=== PATIENT | female | born 1990 ===

== ENCOUNTER 2019-03-27 16:15 | Inpatient (IN) | payer MEDICAID ==
[~2019-03-27] VITALS: Ht 170.2 cm; Wt 54.1 kg
[~2019-03-27 16:15] MED LIST: METF500T17 PO
--- NOTE | 2019-03-27 17:02 | NUR ---
To T1 from lobby
--- NOTE | 2019-03-27 17:04 | NUR ---
BREAK RN: THIS IS A 28 YEAR OLD FEMALE WHO C/O OF LEFT FOOT PAIN PT REPORTS IT IS SWOLLEN "IT IS TURING BLACK." HX OF DIABETES TOES BLACK AND DRY. PT REPORTS THEY HAVE LOOKED LIKE THIS SINCE JAN. KARISSA NOTED TO LEFT FOOT
[2019-03-27 17:06] LABS: ANION GAP 6 mmol/L (5-15); CALCIUM 8.5 mg/dL (8.5-10.1); CHLORIDE 104 mmol/L (98-107); CREATININE 0.67 mg/dL (0.55-1.02)
[2019-03-27] MEDS ORDERED: ASPI-515 PO (17:08)
[2019-03-27] MEDS ORDERED: LISI5TAB7 PO (17:08)
[2019-03-27] MEDS ORDERED: LEVO25TA4 PO (17:09)
[2019-03-27] MEDS ORDERED: ATOR-2 PO (17:09)
[2019-03-27 17:13] LABS: MD YES; MEAN CORPUSCULAR HEMOGLOBIN 28.5 pg (27.0-34.8); MEAN CORPUSCULAR HGB CONC 32.7 g/dL (32.4-35.8); MEAN CORPUSCULAR VOLUME 87.2 fL (80-100); MEAN PLATELET VOLUME 7.3 fL (7.4-10.4); PLATELET COUNT 612 x10^3/uL (130-400); RED BLOOD COUNT 4.34 x10^6/uL (3.82-5.3); RED CELL DISTRIBUTION WIDTH 22.6 % (9.6-15.2)
[2019-03-27] MEDS ORDERED: MORPHINE SULFATE 4 MG/ML, 1ML ONE ×2 (17:23→19:42)
[2019-03-27 17:28] LABS: BAND#(MANUAL) 0.11 x10^3/uL; BANDS%(MANUAL) 1 % (0-7); LYMPH#(MANUAL) 1.44 x10^3/uL (1-3.4); LYMPHS% (MANUAL) 13 % (22-44); METAMYELOCYTES# (MANUAL) 0.11 x10^3/uL (0-0); METAMYELOCYTES% (MANUAL) 1 % (0-1); MONOS#(MANUAL) 0.44 x10^3/uL (0.3-2.7); MONOS% (MANUAL) 4 % (2-9); SEG#(MANUAL) 8.99 x10^3/uL (1.8-6.8); SEGS% (MANUAL) 81 % (42-75)
[2019-03-27 17:30] LABS: <PLATELET ESTIMATE> INCREASED; <PLT MORPHOLOGY> NORMAL PLT MORPH; ANISOCYTOSIS 1+; POLYCHROMASIA 1+
[2019-03-27] MEDS ORDERED: AMPICILLIN/SULBACTAM 3 GM in SODIUM CHLORIDE 0.9% 100 ML IV ONE (17:30)
[2019-03-27] MEDS ORDERED: MORPHINE SULFATE 4 MG/ML, 1ML IVPush ONE (17:30)
--- NOTE | 2019-03-27 17:57 | NUR ---
ABX INFUSING. PAIN IS TOLERABLE. VSS. NO NEEDS AT THIS TIME
[2019-03-27 18:00] LABS: HCT (SEDRATE) 37.8 % (34.6-47.8)
[2019-03-27] MEDS ORDERED: MORPHINE SULFATE 4 MG/ML, 1ML IVPush PRN (20:00)
--- NOTE | 2019-03-27 20:00 | NUR ---
MEDICATED PER ORDERS, GIVEN WATER. NO NEEDS AT THIS TIME. WAITING TO TRANSFER TO FLOOR
--- NOTE | 2019-03-27 20:15 | NUR ---
REPORT TO [facility]
[2019-03-27] MEDS ORDERED: ACETAMINOPHEN 325 MG TABLET PO PRN (20:30)
[2019-03-27] MEDS ORDERED: ONDANSETRON 2MG/ML, 2ML IVPush PRN (20:30)
[2019-03-27 20:51] VITALS: BP 151/95
[2019-03-27] MEDS: AMPICILLIN/SULBACTAM 3 GM in SODIUM CHLORIDE 0.9% 100 ML IV SCH (23:46)
[2019-03-27] MEDS: ATORVASTATIN 80 MG TABLET PO SCH (23:47)
[2019-03-27] MEDS: ENOXAPARIN 40 MG/0.4 ML SQ SCH (23:47)
[2019-03-27] MEDS: morphine SULFATE 10 MG/ML, 1ML IVPush PRN (23:47)
[2019-03-27 23:54] LABS: FREE T4 (FREE THYROXINE) 1.44 ng/dL (0.76-1.46)
[2019-03-28 01:03] VITALS: BP 124/86
[2019-03-28] MEDS: morphine SULFATE 10 MG/ML, 1ML IVPush PRN ×5 (05:47→23:46)
[2019-03-28] MEDS: LEVOTHYROXINE 25 MCG TABLET PO SCH (05:47)
[2019-03-28] MEDS: AMPICILLIN/SULBACTAM 3 GM in SODIUM CHLORIDE 0.9% 100 ML IV SCH ×4 (05:48→23:43)
[2019-03-28 06:01] LABS: ANION GAP 6 mmol/L (5-15); CALCIUM 8.1 mg/dL (8.5-10.1); CHLORIDE 107 mmol/L (98-107)
[2019-03-28 06:07] LABS: CHOL/HDL RATIO 2.6; CHOLESTEROL, TOTAL 93 mg/dL (140-239); CREATININE 0.59 mg/dL (0.55-1.02); HDL CHOL % 39 % (28-40); HDL CHOLESTEROL (DIRECT) 36 mg/dL (40-60); LDL CHOLESTEROL,CALCULATED 36 mg/dL (54-169); TRIGLYCERIDES 107 mg/dL (50-200); VLDL CHOLESTEROL 21 mg/dL (0-25)
[2019-03-28 06:17] LABS: MEAN CORPUSCULAR HEMOGLOBIN 28.6 pg (27.0-34.8); MEAN CORPUSCULAR HGB CONC 32.3 g/dL (32.4-35.8); MEAN CORPUSCULAR VOLUME 88.6 fL (80-100); MEAN PLATELET VOLUME 7.4 fL (7.4-10.4); PLATELET COUNT 563 x10^3/uL (130-400); RED BLOOD COUNT 3.94 x10^6/uL (3.82-5.3); RED CELL DISTRIBUTION WIDTH 22.5 % (9.6-15.2)
[2019-03-28 06:19] LABS: BASOPHILS # (AUTO) 0.05 x10^3/uL (0-0.1); BASOPHILS % (AUTO) 1 % (0-1); EOSINOPHILS % (AUTO) 3 % (1-7); LYMPHOCYTES # (AUTO) 1.27 x10^3/uL (1-3.4); LYMPHOCYTES % (AUTO) 18 % (22-44); MD SCAN; MONOCYTES # (AUTO) 0.63 x10^3/uL (0.2-0.8); MONOCYTES % (AUTO) 9 % (2-9); NEUTROPHILS # (AUTO) 5.12 x10^3/uL (1.8-6.8); NEUTROPHILS % (AUTO) 70 % (42-75)
[2019-03-28 07:04] VITALS: BP 124/82
[2019-03-28] MEDS: ASPIRIN 81 MG TABLET EC PO SCH (08:56)
[2019-03-28] MEDS: SENNA/DOCUSATE TABLET PO SCH (08:56)
[2019-03-28] MEDS: LISINOPRIL 5 MG TABLET PO SCH (08:56)
[2019-03-28 12:49] VITALS: BP 134/89
[2019-03-28 19:03] LABS: INTERNATIONAL NORMALIZED RATIO 1.12 (0.93-1.1); PROTHROMBIN TIME 11.9 Seconds (9.6-11.5)
[2019-03-28 19:51] VITALS: BP 126/86
[2019-03-28] MEDS: ENOXAPARIN 40 MG/0.4 ML SQ SCH (20:22)
[2019-03-28] MEDS: ATORVASTATIN 80 MG TABLET PO SCH (20:22)
[2019-03-29 01:01] VITALS: BP 108/68
[2019-03-29 05:21] LABS: MEAN CORPUSCULAR HEMOGLOBIN 28.4 pg (27.0-34.8); MEAN CORPUSCULAR HGB CONC 32.4 g/dL (32.4-35.8); MEAN CORPUSCULAR VOLUME 87.6 fL (80-100); MEAN PLATELET VOLUME 7.3 fL (7.4-10.4); PLATELET COUNT 479 x10^3/uL (130-400); RED BLOOD COUNT 3.53 x10^6/uL (3.82-5.3); RED CELL DISTRIBUTION WIDTH 22.3 % (9.6-15.2)
[2019-03-29 05:24] LABS: ANION GAP 5 mmol/L (5-15); CHLORIDE 104 mmol/L (98-107)
[2019-03-29 05:27] LABS: CREATININE 0.42 mg/dL (0.55-1.02)
[2019-03-29 05:44] LABS: BASOPHILS # (AUTO) 0.06 x10^3/uL (0-0.1); BASOPHILS % (AUTO) 1 % (0-1); EOSINOPHILS # (AUTO) 0.26 x10^3/uL (0-0.4); EOSINOPHILS % (AUTO) 4 % (1-7); LYMPHOCYTES # (AUTO) 1.64 x10^3/uL (1-3.4); LYMPHOCYTES % (AUTO) 23 % (22-44); MD SCAN; MONOCYTES # (AUTO) 0.53 x10^3/uL (0.2-0.8); MONOCYTES % (AUTO) 8 % (2-9); NEUTROPHILS # (AUTO) 4.57 x10^3/uL (1.8-6.8); NEUTROPHILS % (AUTO) 65 % (42-75)
[2019-03-29] MEDS: LEVOTHYROXINE 25 MCG TABLET PO SCH (06:16)
[2019-03-29] MEDS: AMPICILLIN/SULBACTAM 3 GM in SODIUM CHLORIDE 0.9% 100 ML IV SCH ×3 (06:16→17:25)
[2019-03-29] MEDS: morphine SULFATE 10 MG/ML, 1ML IVPush PRN ×4 (06:19→21:24)
[2019-03-29 07:37] VITALS: BP 113/77
[2019-03-29] MEDS: SENNA/DOCUSATE TABLET PO SCH (09:49)
[2019-03-29] MEDS: ASPIRIN 81 MG TABLET EC PO SCH (09:49)
[2019-03-29] MEDS: LISINOPRIL 5 MG TABLET PO SCH (09:49)
[2019-03-29 14:11] LABS: HCG UR SG 1.011 (1.003-1.030)
[2019-03-29] MEDS ORDERED: FENTANYL PF 250 MCG/5ML ONE (14:24)
[2019-03-29] MEDS ORDERED: MIDAZOLAM 1 MG/ML, 2ML ONE (14:24)
[2019-03-29] MEDS ORDERED: ONDANSETRON 2MG/ML, 2ML ONE (14:25)
[2019-03-29] MEDS ORDERED: DEXAMETHASONE 4 MG/ML, 1ML ONE ×2 (14:25)
[2019-03-29] MEDS ORDERED: CEFAZOLIN 1,000 MG ONE ×2 (14:26)
[2019-03-29] MEDS ORDERED: SODIUM CHLORIDE 0.9% PF 10ML ONE (14:26)
[2019-03-29] MEDS ORDERED: PROPOFOL 10 MG/ML, 20ML ONE (15:14)
[2019-03-29] MEDS ORDERED: PROMETHAZINE 25 MG/ML, 1ML IV PRN (16:00)
[2019-03-29] MEDS ORDERED: ACETAMINOPHEN 325 MG TABLET PO PRN (16:00)
[2019-03-29] MEDS ORDERED: MEPERIDINE/PF 25MG/ML,1ML IVPush PRN (16:00)
[2019-03-29] MEDS ORDERED: HALOPERIDOL 5 MG/ML IV PRN (16:00)
[2019-03-29] MEDS ORDERED: HYDROmorphone 2 MG/ML, 1ML IVPush PRN (16:00)
[2019-03-29] MEDS ORDERED: MORPHINE SULFATE 4 MG/ML, 1ML IVPush PRN (16:00)
[2019-03-29] MEDS ORDERED: LABETALOL 5MG/ML, 20ML IV PRN (16:00)
[2019-03-29] MEDS ORDERED: OXYcodone 5 MG/5 ML ORAL.SOL UDC PO PRN (16:00)
[2019-03-29] MEDS ORDERED: hydrALAzine 20 MG/ML, 1ML IV PRN (16:00)
[2019-03-29] MEDS ORDERED: ACETAMINOPHEN 650 MG/20.3 ML UDC ONE (16:01)
[2019-03-29] MEDS ORDERED: FENTANYL PF 100 MCG/2ML ONE (16:01)
[2019-03-29] MEDS ORDERED: OXYcodone 5 MG/5 ML ORAL.SOL UDC ONE (16:01)
[2019-03-29] MEDS: FENTANYL PF 100 MCG/2ML IV PRN ×2 (16:07→16:25)
[2019-03-29 18:11] VITALS: BP 125/82
[2019-03-29 19:01] VITALS: BP 139/93
[2019-03-29] MEDS: ATORVASTATIN 80 MG TABLET PO SCH (21:15)
[2019-03-29] MEDS: ENOXAPARIN 40 MG/0.4 ML SQ SCH (21:15)
[2019-03-30] MEDS: AMPICILLIN/SULBACTAM 3 GM in SODIUM CHLORIDE 0.9% 100 ML IV SCH ×4 (00:14→17:58)
[2019-03-30] MEDS: morphine SULFATE 10 MG/ML, 1ML IVPush PRN ×5 (00:15→17:57)
[2019-03-30 01:00] VITALS: BP 120/76
[2019-03-30] MEDS: LEVOTHYROXINE 25 MCG TABLET PO SCH (06:28)
[2019-03-30 09:02] VITALS: BP 130/86
[2019-03-30] MEDS: ASPIRIN 81 MG TABLET EC PO SCH (10:40)
[2019-03-30] MEDS: LISINOPRIL 5 MG TABLET PO SCH (10:41)
[2019-03-30] MEDS: SENNA/DOCUSATE TABLET PO SCH (10:41)
[2019-03-30 14:07] VITALS: BP 117/79
[2019-03-30 19:38] VITALS: BP 120/86
[2019-03-30] MEDS: ATORVASTATIN 80 MG TABLET PO SCH (20:32)
[2019-03-30] MEDS: ENOXAPARIN 40 MG/0.4 ML SQ SCH (20:32)
[2019-03-31] MEDS: AMPICILLIN/SULBACTAM 3 GM in SODIUM CHLORIDE 0.9% 100 ML IV SCH ×4 (00:12→18:17)
[2019-03-31] MEDS: morphine SULFATE 10 MG/ML, 1ML IVPush PRN ×4 (00:18→18:17)
[2019-03-31 01:19] VITALS: BP 112/72
[2019-03-31 05:19] LABS: BASOPHILS # (AUTO) 0.05 x10^3/uL (0-0.1); BASOPHILS % (AUTO) 1 % (0-1); EOSINOPHILS # (AUTO) 0.09 x10^3/uL (0-0.4); EOSINOPHILS % (AUTO) 1 % (1-7); LYMPHOCYTES # (AUTO) 1.85 x10^3/uL (1-3.4); LYMPHOCYTES % (AUTO) 19 % (22-44); MD NO; MEAN CORPUSCULAR HEMOGLOBIN 28.4 pg (27.0-34.8); MEAN CORPUSCULAR HGB CONC 32.6 g/dL (32.4-35.8); MEAN CORPUSCULAR VOLUME 87.1 fL (80-100); MEAN PLATELET VOLUME 7.3 fL (7.4-10.4); MONOCYTES # (AUTO) 0.68 x10^3/uL (0.2-0.8); MONOCYTES % (AUTO) 7 % (2-9); NEUTROPHILS # (AUTO) 7.09 x10^3/uL (1.8-6.8); NEUTROPHILS % (AUTO) 73 % (42-75); PLATELET COUNT 435 x10^3/uL (130-400); RED BLOOD COUNT 3.54 x10^6/uL (3.82-5.3); RED CELL DISTRIBUTION WIDTH 21.9 % (9.6-15.2)
[2019-03-31 05:30] LABS: ANION GAP 5 mmol/L (5-15); CALCIUM 7.9 mg/dL (8.5-10.1); CHLORIDE 104 mmol/L (98-107); CREATININE 0.48 mg/dL (0.55-1.02)
[2019-03-31] MEDS: LEVOTHYROXINE 25 MCG TABLET PO SCH (06:18)
[2019-03-31 07:30] VITALS: BP 117/78
[2019-03-31] MEDS ORDERED: MAGNESIUM SULFATE PMX 4GM/100M 100 ML IV ONE (07:30)
[2019-03-31] MEDS: MAGNESIUM CHLORIDE 64 MG TABLET.DR PO SCH ×2 (09:13→20:06)
[2019-03-31] MEDS: SENNA/DOCUSATE TABLET PO SCH (09:13)
[2019-03-31] MEDS: ASPIRIN 81 MG TABLET EC PO SCH (09:13)
[2019-03-31] MEDS: LISINOPRIL 5 MG TABLET PO SCH (09:13)
[2019-03-31 13:03] VITALS: BP 108/69
[2019-03-31] MEDS: ENOXAPARIN 40 MG/0.4 ML SQ SCH (20:06)
[2019-03-31] MEDS: ATORVASTATIN 80 MG TABLET PO SCH (20:06)
[2019-03-31 20:51] VITALS: BP 124/84
[2019-04-01] MEDS: AMPICILLIN/SULBACTAM 3 GM in SODIUM CHLORIDE 0.9% 100 ML IV SCH ×4 (00:10→18:15)
[2019-04-01] MEDS: morphine SULFATE 10 MG/ML, 1ML IVPush PRN (00:22)
[2019-04-01 02:26] VITALS: BP 127/86
[2019-04-01] MEDS: LEVOTHYROXINE 25 MCG TABLET PO SCH (05:44)
[2019-04-01 06:01] LABS: BASOPHILS % (AUTO) 0 % (0-1); EOSINOPHILS # (AUTO) 0.32 x10^3/uL (0-0.4); EOSINOPHILS % (AUTO) 3 % (1-7); LYMPHOCYTES # (AUTO) 1.28 x10^3/uL (1-3.4); LYMPHOCYTES % (AUTO) 13 % (22-44); MD NO; MEAN CORPUSCULAR HEMOGLOBIN 28.2 pg (27.0-34.8); MEAN CORPUSCULAR HGB CONC 32.2 g/dL (32.4-35.8); MEAN CORPUSCULAR VOLUME 87.7 fL (80-100); MEAN PLATELET VOLUME 7.6 fL (7.4-10.4); MONOCYTES # (AUTO) 0.45 x10^3/uL (0.2-0.8); MONOCYTES % (AUTO) 4 % (2-9); NEUTROPHILS # (AUTO) 8.22 x10^3/uL (1.8-6.8); NEUTROPHILS % (AUTO) 80 % (42-75); PLATELET COUNT 458 x10^3/uL (130-400); RED BLOOD COUNT 3.57 x10^6/uL (3.82-5.3); RED CELL DISTRIBUTION WIDTH 21.2 % (9.6-15.2)
[2019-04-01 06:09] LABS: ANION GAP 7 mmol/L (5-15); CHLORIDE 106 mmol/L (98-107); CREATININE 0.45 mg/dL (0.55-1.02)
[2019-04-01 07:24] VITALS: BP 127/83
[2019-04-01 08:23] LABS: HCT (SEDRATE) 30.8 % (34.6-47.8)
[2019-04-01] MEDS: MAGNESIUM CHLORIDE 64 MG TABLET.DR PO SCH ×2 (09:00→21:27)
[2019-04-01] MEDS: LISINOPRIL 5 MG TABLET PO SCH (09:00)
[2019-04-01] MEDS: ASPIRIN 81 MG TABLET EC PO SCH (09:00)
[2019-04-01] MEDS: SENNA/DOCUSATE TABLET PO SCH (09:01)
[2019-04-01] MEDS: HYDROcodone/APAP 5/325 TABLET PO PRN ×2 (10:54→19:30)
[2019-04-01] MEDS ORDERED: MORPHINE SULFATE 4 MG/ML, 1ML ONE (14:33)
[2019-04-01] MEDS ORDERED: GADOTERATE 7.5 MMOL/15 ML SYR ONE (14:57)
[2019-04-01] MEDS ORDERED: MORPHINE SULFATE 4 MG/ML, 1ML IVPush ONE (15:00)
[2019-04-01 19:26] VITALS: BP 119/80
[2019-04-01] MEDS: ATORVASTATIN 80 MG TABLET PO SCH (21:27)
[2019-04-01] MEDS: ENOXAPARIN 40 MG/0.4 ML SQ SCH (21:27)
[2019-04-02] MEDS: AMPICILLIN/SULBACTAM 3 GM in SODIUM CHLORIDE 0.9% 100 ML IV SCH ×4 (00:22→18:07)
[2019-04-02 02:00] VITALS: BP 127/84
[2019-04-02] MEDS: HYDROcodone/APAP 5/325 TABLET PO PRN ×4 (03:24→22:20)
[2019-04-02] MEDS: LEVOTHYROXINE 88 MCG TABLET PO SCH (05:45)
[2019-04-02] MEDS: LISINOPRIL 5 MG TABLET PO SCH (08:34)
[2019-04-02] MEDS: SENNA/DOCUSATE TABLET PO SCH (08:34)
[2019-04-02] MEDS: MAGNESIUM CHLORIDE 64 MG TABLET.DR PO SCH ×2 (08:34→22:28)
[2019-04-02] MEDS: ASPIRIN 81 MG TABLET EC PO SCH (08:34)
[2019-04-02 08:54] VITALS: BP 121/85
[2019-04-02 15:07] VITALS: BP 118/80
[2019-04-02 19:24] VITALS: BP 121/82
[2019-04-02] MEDS: ENOXAPARIN 40 MG/0.4 ML SQ SCH (22:20)
[2019-04-02] MEDS: ATORVASTATIN 80 MG TABLET PO SCH (22:20)
[2019-04-03] MEDS: AMPICILLIN/SULBACTAM 3 GM in SODIUM CHLORIDE 0.9% 100 ML IV SCH ×4 (00:24→17:50)
[2019-04-03 01:25] VITALS: BP 129/81
[2019-04-03] MEDS: HYDROcodone/APAP 5/325 TABLET PO PRN ×3 (04:45→19:07)
[2019-04-03] MEDS: LEVOTHYROXINE 88 MCG TABLET PO SCH (05:46)
[2019-04-03 05:59] LABS: BASOPHILS # (AUTO) 0.04 x10^3/uL (0-0.1); BASOPHILS % (AUTO) 1 % (0-1); EOSINOPHILS # (AUTO) 0.27 x10^3/uL (0-0.4); EOSINOPHILS % (AUTO) 4 % (1-7); LYMPHOCYTES % (AUTO) 18 % (22-44); MD NO; MEAN CORPUSCULAR HEMOGLOBIN 28.6 pg (27.0-34.8); MEAN CORPUSCULAR HGB CONC 32.4 g/dL (32.4-35.8); MEAN CORPUSCULAR VOLUME 88.3 fL (80-100); MEAN PLATELET VOLUME 7.2 fL (7.4-10.4); MONOCYTES # (AUTO) 0.64 x10^3/uL (0.2-0.8); MONOCYTES % (AUTO) 8 % (2-9); NEUTROPHILS # (AUTO) 5.28 x10^3/uL (1.8-6.8); NEUTROPHILS % (AUTO) 69 % (42-75); PLATELET COUNT 467 x10^3/uL (130-400); RED BLOOD COUNT 3.49 x10^6/uL (3.82-5.3); RED CELL DISTRIBUTION WIDTH 21.7 % (9.6-15.2)
[2019-04-03 06:02] LABS: ANION GAP 7 mmol/L (5-15); CALCIUM 8.2 mg/dL (8.5-10.1); CHLORIDE 108 mmol/L (98-107)
[2019-04-03 07:24] VITALS: BP 116/82
[2019-04-03] MEDS: ASPIRIN 81 MG TABLET EC PO SCH (08:37)
[2019-04-03] MEDS: MAGNESIUM CHLORIDE 64 MG TABLET.DR PO SCH ×2 (08:37→20:21)
[2019-04-03] MEDS: SENNA/DOCUSATE TABLET PO SCH (08:38)
[2019-04-03] MEDS: LISINOPRIL 5 MG TABLET PO SCH (08:38)
[2019-04-03 12:22] VITALS: BP 140/92
[2019-04-03 19:44] VITALS: BP 109/77
[2019-04-03] MEDS: ATORVASTATIN 80 MG TABLET PO SCH (20:22)
[2019-04-03] MEDS: ENOXAPARIN 40 MG/0.4 ML SQ SCH (20:22)
[2019-04-04] MEDS: AMPICILLIN/SULBACTAM 3 GM in SODIUM CHLORIDE 0.9% 100 ML IV SCH ×4 (00:05→18:12)
[2019-04-04] MEDS: HYDROcodone/APAP 5/325 TABLET PO PRN ×4 (00:05→21:21)
[2019-04-04 00:50] VITALS: BP 121/80
[2019-04-04 05:41] LABS: BASOPHILS # (AUTO) 0.08 x10^3/uL (0-0.1); BASOPHILS % (AUTO) 1 % (0-1); EOSINOPHILS # (AUTO) 0.25 x10^3/uL (0-0.4); EOSINOPHILS % (AUTO) 4 % (1-7); LYMPHOCYTES # (AUTO) 1.32 x10^3/uL (1-3.4); LYMPHOCYTES % (AUTO) 20 % (22-44); MD NO; MEAN CORPUSCULAR HEMOGLOBIN 28.4 pg (27.0-34.8); MEAN CORPUSCULAR HGB CONC 32.5 g/dL (32.4-35.8); MEAN CORPUSCULAR VOLUME 87.6 fL (80-100); MEAN PLATELET VOLUME 7.2 fL (7.4-10.4); MONOCYTES # (AUTO) 0.58 x10^3/uL (0.2-0.8); MONOCYTES % (AUTO) 9 % (2-9); NEUTROPHILS # (AUTO) 4.27 x10^3/uL (1.8-6.8); NEUTROPHILS % (AUTO) 66 % (42-75); PLATELET COUNT 479 x10^3/uL (130-400); RED CELL DISTRIBUTION WIDTH 21.5 % (9.6-15.2)
[2019-04-04 05:48] LABS: ALBUMIN 1.6 g/dL (3.4-5.0); ANION GAP 7 mmol/L (5-15); CALCIUM 8.2 mg/dL (8.5-10.1); CHLORIDE 109 mmol/L (98-107); CREATININE 0.37 mg/dL (0.55-1.02)
[2019-04-04] MEDS: LEVOTHYROXINE 88 MCG TABLET PO SCH (05:59)
[2019-04-04] MEDS: ASPIRIN 81 MG TABLET EC PO SCH (07:47)
[2019-04-04] MEDS: MULTIVITAMINS/MINERALS TABLET PO SCH (07:47)
[2019-04-04] MEDS: MAGNESIUM CHLORIDE 64 MG TABLET.DR PO SCH ×2 (07:47→21:21)
[2019-04-04] MEDS: LISINOPRIL 5 MG TABLET PO SCH (07:47)
[2019-04-04] MEDS: SENNA/DOCUSATE TABLET PO SCH (07:48)
[2019-04-04 07:50] VITALS: BP 114/75
[2019-04-04 14:43] VITALS: BP 101/61
[2019-04-04 18:50] VITALS: BP 135/95
[2019-04-04] MEDS: ENOXAPARIN 40 MG/0.4 ML SQ SCH (21:21)
[2019-04-04] MEDS: ATORVASTATIN 80 MG TABLET PO SCH (21:21)
[2019-04-05] MEDS: AMPICILLIN/SULBACTAM 3 GM in SODIUM CHLORIDE 0.9% 100 ML IV SCH ×5 (00:08→23:49)
[2019-04-05 00:32] VITALS: BP 138/91
[2019-04-05] MEDS: HYDROcodone/APAP 5/325 TABLET PO PRN ×3 (05:45→18:28)
[2019-04-05] MEDS: LEVOTHYROXINE 88 MCG TABLET PO SCH (05:45)
[2019-04-05 07:37] VITALS: BP 120/79
[2019-04-05] MEDS ORDERED: MAGNESIUM SULFATE PMX 2GM/50ML 50 ML IV ONE (09:00)
[2019-04-05] MEDS: ASPIRIN 81 MG TABLET EC PO SCH (09:35)
[2019-04-05] MEDS: SENNA/DOCUSATE TABLET PO SCH (09:35)
[2019-04-05] MEDS: MAGNESIUM CHLORIDE 64 MG TABLET.DR PO SCH ×2 (09:35→20:35)
[2019-04-05] MEDS: LISINOPRIL 5 MG TABLET PO SCH (09:35)
[2019-04-05] MEDS: MULTIVITAMINS/MINERALS TABLET PO SCH (09:35)
[2019-04-05 12:52] VITALS: BP 128/81
[2019-04-05] MEDS: ATORVASTATIN 80 MG TABLET PO SCH (20:35)
[2019-04-05] MEDS: ENOXAPARIN 40 MG/0.4 ML SQ SCH (20:35)
[2019-04-05 20:41] VITALS: BP 127/86
[2019-04-06 01:21] VITALS: BP 117/74
[2019-04-06] MEDS: LEVOTHYROXINE 88 MCG TABLET PO SCH (06:15)
[2019-04-06] MEDS: HYDROcodone/APAP 5/325 TABLET PO PRN ×3 (06:15→22:05)
[2019-04-06] MEDS: AMPICILLIN/SULBACTAM 3 GM in SODIUM CHLORIDE 0.9% 100 ML IV SCH ×3 (06:15→18:00)
[2019-04-06 08:15] VITALS: BP 118/73
[2019-04-06] MEDS: SENNA/DOCUSATE TABLET PO SCH (08:20)
[2019-04-06] MEDS: LISINOPRIL 5 MG TABLET PO SCH (08:20)
[2019-04-06] MEDS: MAGNESIUM CHLORIDE 64 MG TABLET.DR PO SCH ×2 (08:20→22:04)
[2019-04-06] MEDS: MULTIVITAMINS/MINERALS TABLET PO SCH (08:20)
[2019-04-06] MEDS: ASPIRIN 81 MG TABLET EC PO SCH (08:20)
[2019-04-06 13:08] VITALS: BP 127/88
[2019-04-06 19:20] VITALS: BP 127/90
[2019-04-06] MEDS: ATORVASTATIN 80 MG TABLET PO SCH (22:04)
[2019-04-06] MEDS: ENOXAPARIN 40 MG/0.4 ML SQ SCH (22:05)
[2019-04-07 00:33] VITALS: BP 131/84
[2019-04-07] MEDS: AMPICILLIN/SULBACTAM 3 GM in SODIUM CHLORIDE 0.9% 100 ML IV SCH ×5 (05:28→23:56)
[2019-04-07] MEDS: LEVOTHYROXINE 88 MCG TABLET PO SCH (05:28)
[2019-04-07 07:20] VITALS: BP 121/77
[2019-04-07] MEDS: SENNA/DOCUSATE TABLET PO SCH (07:53)
[2019-04-07] MEDS: MULTIVITAMINS/MINERALS TABLET PO SCH (07:53)
[2019-04-07] MEDS: ASPIRIN 81 MG TABLET EC PO SCH (07:53)
[2019-04-07] MEDS: MAGNESIUM CHLORIDE 64 MG TABLET.DR PO SCH ×2 (07:53→21:04)
[2019-04-07] MEDS: LISINOPRIL 5 MG TABLET PO SCH (07:54)
[2019-04-07] MEDS: HYDROcodone/APAP 5/325 TABLET PO PRN ×2 (11:37→18:22)
[2019-04-07 12:21] LABS: HCT (SEDRATE) 31.7 % (34.6-47.8)
[2019-04-07 13:09] VITALS: BP 126/81
[2019-04-07 19:00] VITALS: BP 117/74
[2019-04-07] MEDS: LACTOBACILLUS CHEW TABLET PO SCH (21:03)
[2019-04-07] MEDS: ENOXAPARIN 40 MG/0.4 ML SQ SCH (21:03)
[2019-04-07] MEDS: ATORVASTATIN 80 MG TABLET PO SCH (21:04)
[2019-04-08 00:35] VITALS: BP 125/82
[2019-04-08 05:26] LABS: BASOPHILS # (AUTO) 0.06 x10^3/uL (0-0.1); BASOPHILS % (AUTO) 1 % (0-1); EOSINOPHILS # (AUTO) 0.31 x10^3/uL (0-0.4); EOSINOPHILS % (AUTO) 4 % (1-7); LYMPHOCYTES # (AUTO) 1.52 x10^3/uL (1-3.4); LYMPHOCYTES % (AUTO) 21 % (22-44); MD NO; MEAN CORPUSCULAR HEMOGLOBIN 28.4 pg (27.0-34.8); MEAN CORPUSCULAR HGB CONC 32.1 g/dL (32.4-35.8); MEAN CORPUSCULAR VOLUME 88.4 fL (80-100); MEAN PLATELET VOLUME 7.3 fL (7.4-10.4); MONOCYTES # (AUTO) 0.57 x10^3/uL (0.2-0.8); MONOCYTES % (AUTO) 8 % (2-9); NEUTROPHILS # (AUTO) 4.89 x10^3/uL (1.8-6.8); NEUTROPHILS % (AUTO) 67 % (42-75); PLATELET COUNT 638 x10^3/uL (130-400); RED BLOOD COUNT 3.43 x10^6/uL (3.82-5.3)
[2019-04-08] MEDS: AMPICILLIN/SULBACTAM 3 GM in SODIUM CHLORIDE 0.9% 100 ML IV SCH (05:28)
[2019-04-08 05:31] LABS: CHLORIDE 110 mmol/L (98-107)
[2019-04-08] MEDS: LEVOTHYROXINE 88 MCG TABLET PO SCH (05:33)
[2019-04-08] MEDS: HYDROcodone/APAP 5/325 TABLET PO PRN ×3 (05:33→21:07)
[2019-04-08 05:46] LABS: ANION GAP 6 mmol/L (5-15); CALCIUM 8.5 mg/dL (8.5-10.1); CREATININE 0.38 mg/dL (0.55-1.02)
[2019-04-08 08:00] VITALS: BP 124/84
[2019-04-08] MEDS: ASPIRIN 81 MG TABLET EC PO SCH (08:41)
[2019-04-08] MEDS: LISINOPRIL 5 MG TABLET PO SCH (08:41)
[2019-04-08] MEDS: MULTIVITAMINS/MINERALS TABLET PO SCH (08:41)
[2019-04-08] MEDS: LACTOBACILLUS CHEW TABLET PO SCH ×3 (08:42→21:07)
[2019-04-08] MEDS: SENNA/DOCUSATE TABLET PO SCH (08:42)
[2019-04-08] MEDS: HYDROXYCHLOROQUINE 200 MG TABLET PO SCH ×2 (13:03→21:07)
[2019-04-08 14:00] VITALS: BP 121/75
[2019-04-08 16:02] LABS: AMPHETAMINE SCREEN, URINE Negative (Negative); BARBITURATE SCREEN, URINE Negative (Negative); BENZODIAZEPINE SCREEN, URINE Negative (Negative); CANNABINOID SCREEN, URINE Negative (Negative); COCAINE SCREEN, URINE Negative (Negative); METHADONE SCREEN, URINE Negative (Negative); OPIATE SCREEN, URINE Positive (Negative); PROTEIN/CREATININE RATIO,URINE 7716 (0-200); TOTAL PROTEIN,URINE RANDOM 152 mg/dL (0-12)
[2019-04-08] MEDS: AMOXICILLIN/CLAV 875-125MG TABLET PO SCH ×2 (16:17→21:07)
[2019-04-08 18:22] LABS: MICROSCOPIC AUTO
[2019-04-08 18:24] LABS: CULTURE INDICATED? NO
[2019-04-08 20:49] VITALS: BP 123/81
[2019-04-08] MEDS: ATORVASTATIN 80 MG TABLET PO SCH (21:06)
[2019-04-08] MEDS: ENOXAPARIN 40 MG/0.4 ML SQ SCH (21:07)
[2019-04-09 01:15] VITALS: BP 129/85
[2019-04-09] MEDS: LEVOTHYROXINE 88 MCG TABLET PO SCH (05:31)
[2019-04-09] MEDS: MULTIVITAMINS/MINERALS TABLET PO SCH (08:07)
[2019-04-09] MEDS: SENNA/DOCUSATE TABLET PO SCH (08:07)
[2019-04-09] MEDS: LACTOBACILLUS CHEW TABLET PO SCH ×3 (08:07→20:35)
[2019-04-09] MEDS: AMOXICILLIN/CLAV 875-125MG TABLET PO SCH ×3 (08:08→20:35)
[2019-04-09] MEDS: HYDROXYCHLOROQUINE 200 MG TABLET PO SCH ×2 (08:08→20:35)
[2019-04-09] MEDS: ASPIRIN 81 MG TABLET EC PO SCH (08:09)
[2019-04-09] MEDS: LISINOPRIL 5 MG TABLET PO SCH (08:09)
[2019-04-09 09:24] VITALS: BP 117/76
[2019-04-09] MEDS: HYDROcodone/APAP 5/325 TABLET PO PRN ×2 (10:08→20:35)
[2019-04-09 12:31] VITALS: BP 108/76
[2019-04-09] MEDS ORDERED: MAGNESIUM SULFATE PMX 2GM/50ML 50 ML IV ONE (16:30)
[2019-04-09] MEDS: ENOXAPARIN 40 MG/0.4 ML SQ SCH (20:35)
[2019-04-09] MEDS: ATORVASTATIN 80 MG TABLET PO SCH (20:35)
[2019-04-09 20:39] VITALS: BP 133/88
[2019-04-10 00:33] VITALS: BP 123/81
[2019-04-10] MEDS: HYDROcodone/APAP 5/325 TABLET PO PRN ×2 (05:26→15:47)
[2019-04-10] MEDS: LEVOTHYROXINE 88 MCG TABLET PO SCH (05:26)
[2019-04-10 05:39] LABS: CHLORIDE 107 mmol/L (98-107)
[2019-04-10 05:45] LABS: ALANINE AMINOTRANSFERASE 15 U/L (12-78); ALBUMIN 1.9 g/dL (3.4-5.0); ALKALINE PHOSPHATASE 102 U/L (45-117); ANION GAP 6 mmol/L (5-15); BILIRUBIN,TOTAL 0.2 mg/dL (0.2-1.0); C-REACTIVE PROTEIN, QUANT 0.52 mg/dL (0.02-0.49); CALCIUM 8.8 mg/dL (8.5-10.1); TOTAL PROTEIN 7.6 g/dL (6.4-8.2)
[2019-04-10 05:48] LABS: BASOPHILS # (AUTO) 0.08 x10^3/uL (0-0.1); BASOPHILS % (AUTO) 1 % (0-1); EOSINOPHILS # (AUTO) 0.26 x10^3/uL (0-0.4); EOSINOPHILS % (AUTO) 3 % (1-7); LYMPHOCYTES # (AUTO) 1.74 x10^3/uL (1-3.4); LYMPHOCYTES % (AUTO) 20 % (22-44); MD NO; MEAN CORPUSCULAR HEMOGLOBIN 28.7 pg (27.0-34.8); MEAN CORPUSCULAR HGB CONC 32.6 g/dL (32.4-35.8); MEAN CORPUSCULAR VOLUME 87.8 fL (80-100); MEAN PLATELET VOLUME 7.7 fL (7.4-10.4); MONOCYTES # (AUTO) 0.43 x10^3/uL (0.2-0.8); MONOCYTES % (AUTO) 5 % (2-9); NEUTROPHILS # (AUTO) 6.01 x10^3/uL (1.8-6.8); NEUTROPHILS % (AUTO) 71 % (42-75); PLATELET COUNT 736 x10^3/uL (130-400); RED BLOOD COUNT 3.55 x10^6/uL (3.82-5.3); RED CELL DISTRIBUTION WIDTH 20.6 % (9.6-15.2)
[2019-04-10 06:10] LABS: HCT (SEDRATE) 31.2 % (34.6-47.8)
[2019-04-10 07:42] VITALS: BP 125/82
[2019-04-10] MEDS: MULTIVITAMINS/MINERALS TABLET PO SCH (08:12)
[2019-04-10] MEDS: LISINOPRIL 5 MG TABLET PO SCH (08:12)
[2019-04-10] MEDS: ASPIRIN 81 MG TABLET EC PO SCH (08:12)
[2019-04-10] MEDS: HYDROXYCHLOROQUINE 200 MG TABLET PO SCH ×2 (08:12→21:36)
[2019-04-10] MEDS: SENNA/DOCUSATE TABLET PO SCH (08:12)
[2019-04-10] MEDS: AMOXICILLIN/CLAV 875-125MG TABLET PO SCH ×3 (08:12→21:35)
[2019-04-10] MEDS: LACTOBACILLUS CHEW TABLET PO SCH ×3 (08:12→21:35)
[2019-04-10 12:25] VITALS: BP 109/73
[2019-04-10 20:17] VITALS: BP 122/80
[2019-04-10] MEDS: ENOXAPARIN 40 MG/0.4 ML SQ SCH (21:36)
[2019-04-10] MEDS: ATORVASTATIN 80 MG TABLET PO SCH (21:36)
[2019-04-11 00:33] VITALS: BP 123/83
[2019-04-11] MEDS: LEVOTHYROXINE 88 MCG TABLET PO SCH (05:47)
[2019-04-11] MEDS: HYDROcodone/APAP 5/325 TABLET PO PRN ×3 (05:51→21:07)
[2019-04-11 08:00] VITALS: BP 110/79
[2019-04-11] MEDS: LISINOPRIL 5 MG TABLET PO SCH (08:39)
[2019-04-11] MEDS: SENNA/DOCUSATE TABLET PO SCH (08:39)
[2019-04-11] MEDS: ASPIRIN 81 MG TABLET EC PO SCH (08:39)
[2019-04-11] MEDS: HYDROXYCHLOROQUINE 200 MG TABLET PO SCH ×2 (08:39→21:03)
[2019-04-11] MEDS: LACTOBACILLUS CHEW TABLET PO SCH ×3 (08:39→21:04)
[2019-04-11] MEDS: MULTIVITAMINS/MINERALS TABLET PO SCH (08:39)
[2019-04-11] MEDS: AMOXICILLIN/CLAV 875-125MG TABLET PO SCH ×3 (08:39→21:04)
[2019-04-11 14:13] VITALS: BP 105/70
[2019-04-11] MEDS: niFEDipine ER 30 MG TABLET.ER PO SCH (18:57)
[2019-04-11 18:58] VITALS: BP 109/69
[2019-04-11] MEDS: ENOXAPARIN 40 MG/0.4 ML SQ SCH (21:03)
[2019-04-11] MEDS: ATORVASTATIN 80 MG TABLET PO SCH (21:04)
[2019-04-12 00:13] VITALS: BP 116/76
[2019-04-12] MEDS: LEVOTHYROXINE 88 MCG TABLET PO SCH (04:59)
[2019-04-12] MEDS: HYDROcodone/APAP 5/325 TABLET PO PRN ×2 (05:01→16:36)
[2019-04-12 06:55] VITALS: BP 95/60
[2019-04-12] MEDS: HYDROXYCHLOROQUINE 200 MG TABLET PO SCH ×2 (09:24→21:35)
[2019-04-12] MEDS: SENNA/DOCUSATE TABLET PO SCH (09:24)
[2019-04-12] MEDS: LISINOPRIL 5 MG TABLET PO SCH (09:24)
[2019-04-12] MEDS: ASPIRIN 81 MG TABLET EC PO SCH (09:24)
[2019-04-12] MEDS: niFEDipine ER 30 MG TABLET.ER PO SCH (09:24)
[2019-04-12] MEDS: LACTOBACILLUS CHEW TABLET PO SCH ×3 (09:24→21:35)
[2019-04-12] MEDS: AMOXICILLIN/CLAV 875-125MG TABLET PO SCH ×3 (09:24→21:35)
[2019-04-12] MEDS: MULTIVITAMINS/MINERALS TABLET PO SCH (09:25)
[2019-04-12 13:40] LABS: ANA SCREEN POSITIVE (Negative); ANA TITER MIXED; ANTI-NUCLEAR ANTIBODY PATTERN MIXED
[2019-04-12] MEDS ORDERED: OMNIPAQUE 350 MG/ML, 100ML BOTTLE ONE (15:10)
[2019-04-12 20:11] VITALS: BP 105/67
[2019-04-12] MEDS: ATORVASTATIN 80 MG TABLET PO SCH (21:35)
[2019-04-12] MEDS: ENOXAPARIN 40 MG/0.4 ML SQ SCH (21:35)
[2019-04-13 01:56] VITALS: BP 104/65
[2019-04-13] MEDS: LEVOTHYROXINE 88 MCG TABLET PO SCH (06:13)
[2019-04-13 07:54] VITALS: BP 101/67
[2019-04-13] MEDS: SENNA/DOCUSATE TABLET PO SCH (08:30)
[2019-04-13] MEDS: niFEDipine ER 30 MG TABLET.ER PO SCH (08:30)
[2019-04-13] MEDS: MULTIVITAMINS/MINERALS TABLET PO SCH (08:30)
[2019-04-13] MEDS: HYDROXYCHLOROQUINE 200 MG TABLET PO SCH ×2 (08:30→21:09)
[2019-04-13] MEDS: AMOXICILLIN/CLAV 875-125MG TABLET PO SCH ×3 (08:31→21:09)
[2019-04-13] MEDS: LACTOBACILLUS CHEW TABLET PO SCH ×3 (08:31→21:09)
[2019-04-13] MEDS: LISINOPRIL 5 MG TABLET PO SCH (08:31)
[2019-04-13] MEDS: ASPIRIN 81 MG TABLET EC PO SCH (08:31)
[2019-04-13] MEDS ORDERED: BISACODYL 10 MG SUPP PR PRN (11:30)
[2019-04-13] MEDS: POLYETHYLENE GLYCOL 17 GM PACKET PO PRN (13:05)
[2019-04-13 14:43] VITALS: BP 98/61
[2019-04-13] MEDS: HYDROcodone/APAP 5/325 TABLET PO PRN (15:47)
[2019-04-13 19:21] VITALS: BP 109/70
[2019-04-13] MEDS: ATORVASTATIN 80 MG TABLET PO SCH (21:09)
[2019-04-13] MEDS: ENOXAPARIN 40 MG/0.4 ML SQ SCH (21:09)
[2019-04-14 01:06] VITALS: BP 103/64
[2019-04-14] MEDS: LEVOTHYROXINE 88 MCG TABLET PO SCH (06:10)
[2019-04-14] MEDS: HYDROcodone/APAP 5/325 TABLET PO PRN (06:11)
[2019-04-14 07:13] VITALS: BP 112/75
[2019-04-14] MEDS: MULTIVITAMINS/MINERALS TABLET PO SCH (08:24)
[2019-04-14] MEDS: LISINOPRIL 5 MG TABLET PO SCH (08:24)
[2019-04-14] MEDS: LACTOBACILLUS CHEW TABLET PO SCH ×2 (08:24→15:16)
[2019-04-14] MEDS: AMOXICILLIN/CLAV 875-125MG TABLET PO SCH ×2 (08:24→15:16)
[2019-04-14] MEDS: HYDROXYCHLOROQUINE 200 MG TABLET PO SCH (08:24)
[2019-04-14] MEDS: niFEDipine ER 30 MG TABLET.ER PO SCH (08:24)
[2019-04-14] MEDS: SENNA/DOCUSATE TABLET PO SCH (08:24)
[2019-04-14] MEDS: ASPIRIN 81 MG TABLET EC PO SCH (08:24)
[2019-04-14] MEDS ORDERED: HYDR200T5 PO (13:12)
[2019-04-14] MEDS ORDERED: LEVO88TA4 PO (13:12)
[2019-04-14] MEDS ORDERED: NIFE30TA13 PO (13:12)
[2019-04-14] MEDS ORDERED: MULT-484 PO (13:12)
[2019-04-14] MEDS ORDERED: PRED10TA PO (13:12)
[2019-04-14] MEDS ORDERED: AMOX1TAB12 PO (13:12)
[2019-04-14 13:51] VITALS: BP 106/68
[2019-04-14] MEDS: POLYETHYLENE GLYCOL 17 GM PACKET PO PRN (15:27)
[2019-04-14] MEDS ORDERED: FLU VACC QS2019-20 36MOS UP/PF 0.5 ML IM-VACC ONE (18:00)
== END 2019-04-14 18:30 | disposition home or self-care (01) | DRG 314 ==
LOC: ED 18:23 → EDIP 18:57 → 3N 20:40
PROVIDERS: ADMIT Family Medicine; ATTEND Hospitalist
PROC: 0Y6Q0Z0 Detachment at Left 1st Toe, Complete, Open Approach (ICD-10-PCS; 2019-03-29)
PROC: 0Y6U0Z2 Detachment at Left 3rd Toe, Mid, Open Approach (ICD-10-PCS; 2019-03-29)
PROC: 0Y6W0Z1 Detachment at Left 4th Toe, High, Open Approach (ICD-10-PCS; principal; 2019-03-29 14:30)
DX: E11.52 Type 2 diabetes mellitus with diabetic peripheral angiopathy with gangrene (principal); E43 Unspecified severe protein-calorie malnutrition; M32.9 Systemic lupus erythematosus, unspecified; E11.22 Type 2 diabetes mellitus with diabetic chronic kidney disease; E11.621 Type 2 diabetes mellitus with foot ulcer; L03.116 Cellulitis of left lower limb; E11.319 Type 2 diabetes mellitus with unspecified diabetic retinopathy without macular edema; L97.529 Non-pressure chronic ulcer of other part of left foot with unspecified severity; N04.9 Nephrotic syndrome with unspecified morphologic changes; D63.8 Anemia in other chronic diseases classified elsewhere; E03.9 Hypothyroidism, unspecified; Z68.1 Body mass index [BMI] 19.9 or less, adult; I77.6 Arteritis, unspecified; I99.8 Other disorder of circulatory system; N18.9 Chronic kidney disease, unspecified; N25.0 Renal osteodystrophy; Z79.82 Long term (current) use of aspirin; Z83.3 Family history of diabetes mellitus; Z79.84 Long term (current) use of oral hypoglycemic drugs
CPT/HCPCS: 36415; 80048; 80053; 80061; 80307; 81001; 81025; 82040; 82570; 82595; 82962; 83036; 83516; 83520; 83735; 84100; 84155; 84156; 84165; 84439; 84443; 84703; 85025; 85610; 85651; 86038; 86039; 86140; 86147; 86160; 86225; 86235; 86255; 86256; 86376; 86430; 86431; 90686; 93926; 96365; 96366; G0378; J0295; J0690; J1100; J1650; J2250; J2405; J2704; J3010; Q9967; A9575; J2270; J3475; J7512